=== PATIENT | male | born 1965 | race Caucasian/White ===

== ENCOUNTER 2018-09-27 16:36 | Emergency (ER) | payer MEDICAID ==
--- NOTE | 2018-09-27 17:28 | EDPHY ---
H & P Stated Complaint: SI - Personal History Current Tetanus/Diphtheria Vaccine: Yes Tetanus Vaccine Date: Unknown - Medical/Surgical History Hx Asthma: No Hx Chronic Respiratory Disease: No Hx Diabetes: No Hx Cardiac Disease: No Hx Renal Disease: No Hx Cirrhosis: No Hx Alcoholism: No Hx HIV/AIDS: No Hx Splenectomy or Spleen Trauma: No Other PMH: Tricuspid valve surgery, chest tubes, left knee surgery, hernia repair - Social History Smoking Status: Current every day smoker Alcohol Use: Sober Drug Use: None Time Seen by Provider: 09/27/18 16:52 HPI/ROS: CHIEF COMPLAINT: Suicidal ideation HISTORY OF PRESENT ILLNESS: 53-year-old male with a history of depression presents with suicidal ideation. Long history of depression, has tried multiple antidepressants without relief. Has previously been on lithium, which helped quite a bit, but stopped taking lithium because of cardiac toxicity. Recently he has had increased thoughts of suicide, without plan. No homicidal ideation, hallucinations or paranoia. Denies alcohol or drug use recently. REVIEW OF SYSTEMS: complete 10 point ROS reviewed and is negative except for the noted elements in the HPI (Yolis Cabrera S) - Physical Exam Exam: General Appearance: Alert, pleasant Eyes: Pupils equal and round, no conjunctival pallor or injection ENT, Mouth: Mucous membranes moist Neck: Normal inspection Respiratory: Lungs are clear to auscultation Cardiovascular: Regular rate and rhythm, no murmur Gastrointestinal: Abdomen is soft and nontender Neurological: A&O, nonfocal, normal gait Skin: Warm and dry Extremities: Normal inspection Psychiatric: Flat affect (Yolis Cabrera S) Constitutional: Initial Vital Signs Temperature (C) 36.9 C 09/27/18 16:39 Heart Rate 97 09/27/18 16:39 Respiratory Rate 18 09/27/18 16:39 Blood Pressure 138/86 H 09/27/18 16:39 O2 Sat (%) 96 09/27/18 16:39 O2 Delivery Mode Room Air Allergies/Adverse Reactions: No Known Allergies Allergy (Verified 09/27/18 16:41) Home Medications: Medication Instructions Recorded Cholecalciferol Vit D3 [Vitamin D3 1,000 units PO DAILY 12/07/13 (OTC)] Multivitamins [Tab-A-Anatoly] 1 each PO DAILY 12/07/13 Vitamin B Complex [B Complex] 1 each PO DAILY 12/07/13 Medical Decision Making ED Course/Re-evaluation: This patient presents with suicidal ideation. Placed on an M1 hold by me. He was initially seen by mental health and the full MH evaluation will occur tomorrow morning. 11:00 p.m.-signed over to Dr. Means at shift change. (Yolis Cabrera) 0700AM: No acute events overnight. Patient has been sleeping. Signed over to Dr. Sosa at 7am. (Lavon Means) Differential Diagnosis: Differential diagnosis includes though it is not limited to suicidal ideation, overdose, acute psychosis, self-injury, alcohol withdrawal. (Yolis Cabrera) Other Provider: Care assumed at 6:35 a.m. For this patient with depression on a mental health hold for suicidal ideation, plan for mental health evaluation this morning. 647: per Shweta from [facility] plan for inpatient psychiatric admission. Continue with nicotine gum. 1039: The patient will be transferred to [facility] for inpatient psychiatric hospital bed not available at this facility, in stable condition; accepting physician is Dr. Pink. EMTALA form completed. (Emmanuel Sosa) - Data Points Laboratory Results: Laboratory Results 09/27/18 17:18 09/27/18 17:18 Medications Given: Nicotine Polacrilex (Nicorette) 4 mg B PRN PRN PRN Reason: Nicotine Withdrawal Stop: 03/26/19 17:55 Last Admin: 09/28/18 08:41 Dose: 4 mg Discontinued Medications Nicotine Polacrilex (Nicorette) 4 mg B EDNOW ONE Stop: 09/28/18 07:18 Last Admin: 09/28/18 07:20 Dose: 4 mg Departure - Departure Disposition: Other Psych, Not An Clinical Impression: Suicidal ideation, Severe major depression Condition: Good Instructions: Suicide Prevention (ED) Referrals: [facility],. [Clinic] - As per Instructions
[2018-09-27 17:29] LABS: PLATELET COUNT 211 10^3/uL (150-400)
[2018-09-27] MEDS ORDERED: NICOTINE POLACRILEX 2 MG GUM B PRN (17:56)
[2018-09-28] MEDS ORDERED: NICOTINE POLACRILEX 2 MG GUM B ONE (07:17)
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
--- NOTE | 2018-09-28 10:14 | ASMTTCLDSP ---
TLC Discharge Disposition Disposition: Answers: Transfer Disposition Notes: Notes: In consultation with [facility] ED physician, Emmanuel Sosa MD and on-call psychiatrist, Jose Beck MD, both concurred that pt appears to meet 27-65 criteria requiring psychiatric hospitalization as pt appears to be at risk of harm to self/others/gravely disabled due to a mental illness condition. Pt was read the Patient Rights and Responsibilities Statement on 09/28/18 at 08:15 the original placed on chart, and pt was given photocopy of Rights. Pt signed the Patient Rights. Was patient given the Answers: Not applicable Inpatient Behavioral Health Prohibited Belongings List while in the ED? Type of Hold: Answers: M1/72-hour Hold Hold initiated by: Answers: ED Physician For Transfers, [facility]: For Transfers, Accepting Dr Anatoly Pink Psychiatrist: Date Signed: 09/28/2018 10:13 AM Electronically Signed By:Shweta Stokes
[2018-09-28 12:06] VITALS: BP 143/82
== END 2018-09-28 11:26 ==
LOC: EEVIPCON 16:36
DX: R45.851 Suicidal ideations (principal); F32.2 Major depressive disorder, single episode, severe without psychotic features
CPT/HCPCS: 80305; G0480

== ENCOUNTER 2018-11-02 06:22 | Emergency (ER) | payer MEDICAID | END 2018-11-02 09:04 | disposition home or self-care (01) ==